=== PATIENT | female | born 1955 | race Caucasian/White ===

== ENCOUNTER 2019-12-04 00:37 | Day surgery (SDC) | payer BC, SELFPAY ==
[2019-12-01 10:59] VITALS: BMI 30.2
[2019-12-04] MEDS: LACTATED RINGERS 1,000 ML 150 ML IV CONT (07:50)
[2019-12-04 07:56] LABS: Glucose Point of Care 101 (65-105)
--- NOTE | 2019-12-04 07:57 | PM.HPGS ---
History of Present Illness History of Present Illness Consent: Risks, benefits, and alternatives have been discussed and questions answered. Patient agrees to proceed with procedure. Chief complaint: Neoplasm Screening Narrative: Lauren Land is a 64 year old W female referred for colonoscopy. Patient states she had a colonoscopy over 10 years ago which was normal. She had a positive colo guard test was referred for colonoscopy. Patient is asymptomatic. No family history of colon cancer. [facility] Past Medical History Medical History (Updated 12/04/19 @ 07:58 by Shyam Wakefield MD) ADHD Depression Diabetes mellitus Hypertension Surgical History Surgical History (Updated 12/04/19 @ 07:59 by Shyam Wakefield MD) H/O bilateral mastectomy H/O varicose vein stripping History of tonsillectomy and adenoidectomy Status post bunionectomy Meds Home Medications and Allergies Home Medications Medication Instructions Recorded Confirmed Type amlodipine-atorvastatin [Caduet] 1 tablet PO DAILY 12/01/19 12/01/19 History atomoxetine 25 mg PO ONCE 12/01/19 12/01/19 History bupropion HCl 300 mg PO QAM 12/01/19 12/01/19 History exemestane 25 mg PO DAILY 12/01/19 12/01/19 History lorazepam 0.5 mg PO DAILY PRN 12/01/19 12/01/19 History losartan 50 mg PO DAILY 12/01/19 12/01/19 History metformin 500 mg PO TID 12/01/19 12/01/19 History omeprazole 40 mg PO DAILY 12/01/19 12/01/19 History pioglitazone [Actos] 30 mg PO DAILY 12/01/19 12/01/19 History Allergies Allergy/AdvReac Type Severity Reaction Status Date / Time No Known Allergies Allergy Verified 12/04/19 07:55 Exam Const: Orientation/consciousness: patient oriented x3 Resp: Auscultation: clear to auscultation bilaterally Cardio: Rate: regular rate Rhythm: regular rhythm Heart sounds: no murmurs GI: GI Palp: Yes Soft to palpation, No Tenderness to palpation present (GI), Yes No hepatosplenomegaly present and No Palpable mass present Auscultation: normal bowel sounds Neuro: General: patient oriented x3 and no focal motor deficits Extrem: General: no pedal edema Assessment and Plan Additional Plan colonoscopy secondary positive colo guard test
[2019-12-04 07:58] VITALS: BP 136/87; PULSE 100; RESP 20; TEMP 36.5; O2SAT 97
--- NOTE | 2019-12-04 08:45 | WPDANESEPPF ---
Anes - Initial Pre Proc Eval Procedure: Operation Date: 12/04/19 09:00 Proposed Procedures p Screening Colonoscopy - Shyam Wakefield MD Date/Time: 12/04/19 08:45 Surgeon: Shyam Wakefield MD Pre Op Diagnosis: Neoplasm Screening Patient Data Age: 64 Gender: F Height: 5 ft 2.5 in Weight: 81.5 kg Last Vital Signs Temp 36.5 C 12/04/19 07:58 Pulse 100 12/04/19 07:58 Resp 20 12/04/19 07:58 BP 136/87 12/04/19 07:58 Pulse Ox 97 12/04/19 07:58 Allergies Allergy/AdvReac Type Severity Reaction Status Date / Time No Known Allergies Allergy Verified 12/04/19 07:55 Home Medications Medication Instructions Recorded Confirmed Type amlodipine-atorvastatin [Caduet] 1 tablet PO DAILY 12/01/19 12/04/19 History atomoxetine 25 mg PO ONCE 12/01/19 12/01/19 History bupropion HCl 300 mg PO QAM 12/01/19 12/01/19 History exemestane 25 mg PO DAILY 12/01/19 12/01/19 History lorazepam 0.5 mg PO DAILY PRN 12/01/19 12/01/19 History losartan 50 mg PO DAILY 12/01/19 12/01/19 History metformin 500 mg PO TID 12/01/19 12/01/19 History omeprazole 40 mg PO DAILY 12/01/19 12/01/19 History pioglitazone [Actos] 30 mg PO DAILY 12/01/19 12/01/19 History Laboratory Tests 12/04/19 07:53 POC Capillary Glucose 101 mg/dl mg/dl (65-105) Patient hx anesthesia problems: none Family hx anesthesia problems: none PMFSH Past Medical History Medical History ADHD Depression Diabetes mellitus Hypertension Surgical History Surgical History H/O bilateral mastectomy H/O varicose vein stripping History of tonsillectomy and adenoidectomy Status post bunionectomy Anes - Eval Final PreProcedure Day of Procedure 12/04/19 08:45 Patient weight: obese Lungs: clear to auscultation Airway: Mallampati scale class II Neurological: alert and oriented Last oral intake: >/= 8 hours ASA classification: III Emergent: no Anesthetic plan: proceed Anesthesia type and monitoring: general GIVS and standard monitoring Informed Consent: The patient's anesthetic plan and its attendant risks and benefits were discussed with the patient/family/POA. Questions were solicited and answers provided to the satisfaction of the patient/family/POA.
[2019-12-04 09:35] VITALS: BP 128/75; PULSE 91; RESP 24; O2SAT 99
[2019-12-04 09:45] VITALS: BP 142/79; PULSE 85; RESP 20; O2SAT 98
[2019-12-04 09:55] VITALS: BP 135/77; PULSE 86; RESP 23; O2SAT 99
== END 2019-12-04 10:04 | disposition home or self-care (01) ==
PROVIDERS: PCP Family Medicine; Visit Provider Internal Medicine Gastroenterology
PROC: 0DJD8ZZ Inspection of Lower Intestinal Tract, Via Natural or Artificial Opening Endoscopic (ICD-10-PCS; CPT 45378; principal; 2019-12-04 09:00)
DX: Z12.11 Encounter for screening for malignant neoplasm of colon (principal); R19.5 Other fecal abnormalities; K63.89 Other specified diseases of intestine; I10 Essential (primary) hypertension; E11.9 Type 2 diabetes mellitus without complications; F90.9 Attention-deficit hyperactivity disorder, unspecified type; F32.9 Major depressive disorder, single episode, unspecified; Z79.84 Long term (current) use of oral hypoglycemic drugs; E66.9 Obesity, unspecified; Z68.32 Body mass index [BMI] 32.0-32.9, adult
CPT/HCPCS: 45378; J2001; J2704; J7120

== ENCOUNTER 2023-07-19 08:49 | Outpatient (CLI) | payer MEDICARE, SELFPAY ==
[2023-07-19 10:30] LABS: Anion Gap 10 mmol/L (8-16); Blood Urea Nitrogen 13 mg/dL (7-17); Calcium 9.4 mg/dL (8.4-10.2); Carbon Dioxide 24 mmol/L (22-30); Chloride 103 mmol/L (98-107); Estimated Glomerular Filt Rate > 60; Glucose 93 mg/dL (65-110); Sodium 137 mmol/L (137-145)
== END 2023-07-19 08:50 | disposition home or self-care (01) ==
LOC: ANHSURGERY 08:56
PROVIDERS: Anesthesiology; PCP Family Medicine; Visit Provider Obstetrics & Gynecology Gynecology
DX: E11.9 Type 2 diabetes mellitus without complications (principal); Z01.818 Encounter for other preprocedural examination
CPT/HCPCS: 36415; 80048

== ENCOUNTER 2023-07-26 01:03 | Day surgery (SDC) | payer MEDICARE, SELFPAY ==
--- NOTE | 2023-07-15 15:55 | PC.NURSE ---
Report to the Outpatient Waiting Room, entrance under the green pavilion located off [facility], at time _0615 on date __07/26/23 . Planned Procedure Time: __814 . Time changes happen often and if your time is changed the preop area will call you the afternoon before. - You and your visitor will be asked to self-screen and do not enter if you have any COVID symptoms. - A mask is optional within the hospital at this time. Patients may have clear liquids (water, carbonated beverages, clear teas, apple juice) until 3 hours prior to surgery with a maximum of 20 ounces. - No food from midnight until time of surgery - Infants may have breast milk until 4 hours before surgery, infant formula 6 hours prior to surgery. - Children will be allowed to drink immediately following surgery. If applicable, please bring a bottle or sippy cup to assist with drinking. Juice, water, soda, and popsicles are readily available. For infants on formula, please bring formula the day of surgery. Pacifiers are allowed. Take the following medications with a SIP of water the morning of surgery: ___BUPROPION DO NOT STOP ANY OF YOUR OTHER PRESCRIPTION MEDICATIONS PRIOR TO SURGERY ?EXCEPT THE FOLLOWING Medications to discontinue per physician __ALL VITAMINS AND SUPPLEMENTS 3 DAYS PRE OP.LAST DOSE 07/22/23 Please no make-up, nail lux[place]ish, hairspray, perfume, deodorant, or body powder the day of surgery. No jewelry (including any body piercings) or valuables the day of surgery, leave them at home. Please take a shower or bath the night before, or the morning of, surgery with an antibacterial soap. Wear comfortable, loose fitting clothing. Children are encouraged to wear pajamas. - Jewelry must be removed prior to entering the operating room. Rings and piercings that are not removed may be cut off. - The hospital will not accept responsibility for valuables. - Please leave all valuables, including medications, at home the day of surgery. If you are going home after surgery, a licensed auto crane driver must drive you home. - NO public transportation without another adult if you receive anesthesia. - We recommend that an adult stay with you for 24 hours following discharge. - We also recommend that you do not drive, make important decision, drink alcoholic beverages, or take any drugs that were not prescribed by your health care provider for at least 24 hours after your discharge time. For Pediatric surgeries, we recommend two adults accompany the child home. Follow any additional instructions given to you from your surgeon. If you or anyone in your household have experienced Covid symptoms in the past week, please notify your surgeon or the nurse liaison at the phone number below for possible testing. Telephone instructions given to __PATIENT and asked if any additional questions and then verbalized understanding. Patient advised to call surgeon office or pre surgery nurse liaison [phone] if any additional questions.
[2023-07-15 16:04] VITALS: BMI 28.1
--- NOTE | 2023-07-26 06:52 | WPDANESEPPF ---
Anes - Initial Pre Proc Eval Procedure: Operation Date: 07/26/23 08:15 Proposed Procedures p Hysteroscopy, Dilation and Curettage - Earlene Ellison MD Date/Time: 07/26/23 06:52 Surgeon: Earlene Ellison MD Pre Op Diagnosis: thick endometrial lining Patient Data Age: 68 Gender: F Height: 1.63 m Weight: 74.4 kg Allergies Allergy/AdvReac Type Severity Reaction Status Date / Time amoxicillin [From Augmentin] Allergy Nausea and Verified 07/26/23 06:16 Vomiting clavulanic acid Allergy Nausea and Verified 07/26/23 06:16 [From Augmentin] Vomiting Home Medications Medication Instructions Recorded Confirmed Type atomoxetine 25 mg capsule 25 mg PO DAILY 12/01/19 07/26/23 History bupropion HCl 300 mg 24 hr tablet, 300 mg PO QAM 12/01/19 07/26/23 History extended release lorazepam 0.5 mg tablet 0.5 mg PO DAILY PRN Anxiety 12/01/19 07/26/23 History metformin 500 mg tablet,extended 500 mg PO TID 12/01/19 07/26/23 History release 24 hr omeprazole 40 mg capsule,delayed 40 mg PO DAILY 12/01/19 07/26/23 History release acetaminophen 650 mg 1,300 mg PO Q12H PRN Pain 07/15/23 07/26/23 History tablet,extended release (Tylenol Arthritis Pain) amitriptyline 25 mg tablet 25 mg PO HS 07/15/23 07/26/23 History amlodipine 10 mg tablet 10 mg PO HS 07/15/23 07/26/23 History ascorbic acid (vitamin C) 1,000 mg 1 g PO DAILY 07/15/23 07/26/23 History tablet atorvastatin 40 mg tablet 20 mg PO HS 07/15/23 07/26/23 History calcium carb-ergocalciferol (vit 1 tablet PO DAILY 07/15/23 07/26/23 History D2) 600 mg calcium-200 unit tablet cetirizine 10 mg capsule (Zyrtec) 10 mg PO HS 07/15/23 07/26/23 History cholecalciferol (vitamin D3) 50 50 mcg PO DAILY 07/15/23 07/26/23 History mcg (2,000 unit) tablet coenzyme Q10 100 mg capsule 100 mg PO DAILY 07/15/23 07/26/23 History (CoQ-10) lisinopril 5 mg tablet 5 mg PO DAILY 07/15/23 07/26/23 History melatonin 5 mg tablet 5 mg PO HS PRN Insomnia 07/15/23 07/26/23 History semaglutide 0.25 mg or 0.5 mg (2 0.25 mg subcut WEEKLY 07/15/23 07/26/23 History mg/3 mL) subcutaneous pen injector (Ozempic) Patient hx anesthesia problems: none Family hx anesthesia problems: none Results Review: All pre-operative results and documents have been reviewed as part of the pre-operative evaluation. [facility] Past Medical History Medical History (Updated 07/26/23 @ 06:52 by Tushar Montilla MD) ADHD Breast cancer Depression Diabetes mellitus Hypertension Surgical History Surgical History (Updated 07/26/23 @ 06:52 by Tushar Montilla MD) H/O bilateral mastectomy H/O sinus surgery H/O varicose vein stripping History of tonsillectomy and adenoidectomy Status post bunionectomy Social History Social History Smoking packs per day: 0.5 Smoking cigarettes per day: 10.0 Years smoked: 20 Smoking pack-years: 10.00 Smoking status: Former smoker Tobacco type: cigarettes Smoking end date: 10/18/99 Living arrangements: with family Spiritual care concerns: No Anes - Eval Final PreProcedure Day of Procedure 07/26/23 06:52 Patient weight: overweight Heart: regular rate and rhythm Lungs: clear to auscultation Airway: Mallampati scale class II Neurological: alert and oriented Last oral intake: >/= 8 hours ASA classification: III Emergent: no Anesthetic plan: proceed Anesthesia type and monitoring: general GIVS and standard monitoring Results Review: All pre-operative results and documents have been reviewed as part of the pre-operative evaluation. Informed Consent: The patient's anesthetic plan and its attendant risks and benefits were discussed with the patient/family/POA. Questions were solicited and answers provided to the satisfaction of the patient/family/POA.
[2023-07-26] MEDS: ACETAMINOPHEN 500 MG TABLET 1000 MG PO (07:02)
[2023-07-26 07:06] LABS: Glucose Point of Care 100 mg/dl (65-105)
[2023-07-26] MEDS: LACTATED RINGERS 1,000 ML 30 ML IV CONT (07:15)
[2023-07-26 07:28] VITALS: BP 132/73; PULSE 107; RESP 16; TEMP 36.8; O2SAT 100; BMI 26.8
--- NOTE | 2023-07-26 07:38 | WPDHPUPDATE1 ---
History and Physical Update Update Date/Time: 07/26/23 07:38 History and Physical has been reviewed, including an updated exam of the patient. There are NO changes in the patient's condition. Risks, benefits, and alternatives have been discussed and questions answered. Patient agrees to proceed with procedure.
--- NOTE | 2023-07-26 07:38 | PM.HPGS ---
History of Present Illness History of Present Illness Consent: Risks, benefits, and alternatives have been discussed and questions answered. Patient agrees to proceed with procedure. Chief complaint: thick endometrial lining Narrative: Lauren Land is a 68 year old female who presented to the office after primary physician ordered a pelvic ultrasound for pelvic pain. The ultrasound showed a 6mm heterogeneous appearing endometrial stripe. The patient denies any vaginal bleeding. It was recommended to undergo D&C hysteroscopy for further evaluation. Risks of infection, bleeding, perforation, and possible pathology were reviewed. Patient voices understanding and agrees to proceed. Review of Systems Review of Systems: not repeated day of surgery; patient states no changes in status PMFSH Past Medical History Medical History (Updated 07/26/23 @ 07:42 by Earlene Ellison MD) ADHD Anxiety Breast cancer Diagnosed 2019 Depression Diabetes mellitus Hypercholesterolemia Hypertension Surgical History Surgical History (Updated 07/26/23 @ 07:41 by Earlene Ellison MD) H/O bilateral mastectomy With reconstructive surgery H/O sinus surgery H/O varicose vein stripping History of tonsillectomy and adenoidectomy Status post bunionectomy Social History Social History Smoking packs per day: 0.5 Smoking cigarettes per day: 10.0 Years smoked: 20 Smoking pack-years: 10.00 Smoking status: Former smoker Tobacco type: cigarettes Smoking end date: 10/18/99 Living arrangements: with family Spiritual care concerns: No Meds Home Medications and Allergies Home Medications Medication Instructions Recorded Confirmed Type atomoxetine 25 mg capsule 25 mg PO DAILY 12/01/19 07/26/23 History bupropion HCl 300 mg 24 hr tablet, 300 mg PO QAM 12/01/19 07/26/23 History extended release lorazepam 0.5 mg tablet 0.5 mg PO DAILY PRN Anxiety 12/01/19 07/26/23 History metformin 500 mg tablet,extended 500 mg PO TID 12/01/19 07/26/23 History release 24 hr omeprazole 40 mg capsule,delayed 40 mg PO DAILY 12/01/19 07/26/23 History release acetaminophen 650 mg 1,300 mg PO Q12H PRN Pain 07/15/23 07/26/23 History tablet,extended release (Tylenol Arthritis Pain) amitriptyline 25 mg tablet 25 mg PO HS 07/15/23 07/26/23 History amlodipine 10 mg tablet 10 mg PO HS 07/15/23 07/26/23 History ascorbic acid (vitamin C) 1,000 mg 1 g PO DAILY 07/15/23 07/26/23 History tablet atorvastatin 40 mg tablet 20 mg PO HS 07/15/23 07/26/23 History calcium carb-ergocalciferol (vit 1 tablet PO DAILY 07/15/23 07/26/23 History D2) 600 mg calcium-200 unit tablet cetirizine 10 mg capsule (Zyrtec) 10 mg PO HS 07/15/23 07/26/23 History cholecalciferol (vitamin D3) 50 50 mcg PO DAILY 07/15/23 07/26/23 History mcg (2,000 unit) tablet coenzyme Q10 100 mg capsule 100 mg PO DAILY 07/15/23 07/26/23 History (CoQ-10) lisinopril 5 mg tablet 5 mg PO DAILY 07/15/23 07/26/23 History melatonin 5 mg tablet 5 mg PO HS PRN Insomnia 07/15/23 07/26/23 History semaglutide 0.25 mg or 0.5 mg (2 0.25 mg subcut WEEKLY 07/15/23 07/26/23 History mg/3 mL) subcutaneous pen injector (Ozempic) Allergies Allergy/AdvReac Type Severity Reaction Status Date / Time amoxicillin [From Augmentin] Allergy Nausea and Verified 07/26/23 06:16 Vomiting clavulanic acid Allergy Nausea and Verified 07/26/23 06:16 [From Augmentin] Vomiting Vital Signs Vital Signs - 24 hr 07/26/23 07:28 Temperature 98.2 F Pulse Rate 107 H Respiratory Rate 16 Blood Pressure 132/73 Pulse Oximetry 100 Oxygen Delivery Room Air Exam Const: General: healthy appearing and alert Orientation/consciousness: patient oriented x3 Resp: Effort & Inspection: normal respiratory effort GI: GI Palp: Yes Soft to palpation, No Tenderness to palpation present (GI) and No Palpable mass
--- NOTE | 2023-07-26 08:51 | W.PM.PROC2 ---
Procedure Note - Detailed Date of Procedure 07/26/23 Pre-op Diagnosis thick endometrial lining Post-op Diagnosis Same Procedure Performed D&C hysteroscopy Surgeon Earlene Ellison MD Anesthesia MAC Findings The cervix is stenotic. The endometrium has a cystic appearance. The remainder of the endometrium appears atrophic. The uterus sounds to 6cm. Description of Procedure The patient is taken to the operating room and placed under anesthesia in the dorsal lithotomy position. She was prepped and draped in the usual sterile fashion. [place] speculum was placed in the vagina and the cervix grasped on the anterior lip with a tenaculum. The external os and internal os are very stenotic. The uterine sound is not pass the external os. Cervix is serially dilated to a 5 [place]gar. The diagnostic hysteroscope was placed and with the above-stated findings the Aveeta resection device is opened and placed. Under direct visualization the cystic areas anteriorly and posteriorly are removed in their entirety. The hysteroscope was then removed and the OO sharp curette is used to curette the endometrium until a good uterine cry is noted in all areas. Minimal material was obtained consistent with the atrophic appearance. The uterus is then sounded to 6cm. All instruments are removed. Sponge, needle, and instrument counts are correct per the OR staff. The patient was awakened from anesthesia and taken to recovery in stable condition. Estimated Blood Loss 5 Drains No Packing No Pathology Yes (Endometrial shavings and curettings) Complications No immediate complications Condition Stable
[2023-07-26 08:56] VITALS: BP 124/82; PULSE 87; RESP 14; O2SAT 99
[2023-07-26 09:03] LABS: Glucose Point of Care 102 mg/dl (65-105)
[2023-07-26 09:25] VITALS: BP 112/63; PULSE 85; RESP 20
[2023-07-26 09:35] VITALS: BP 122/71; PULSE 91; RESP 20
== END 2023-07-26 09:45 | disposition home or self-care (01) ==
PROVIDERS: PCP Family Medicine; Visit Provider Obstetrics & Gynecology Gynecology
PROC: 0U5B8ZZ Destruction of Endometrium, Via Natural or Artificial Opening Endoscopic (ICD-10-PCS; CPT 58563; principal; 2023-07-26 08:15)
DX: N85.8 Other specified noninflammatory disorders of uterus (principal); F90.9 Attention-deficit hyperactivity disorder, unspecified type; F41.9 Anxiety disorder, unspecified; F32.A Depression, unspecified; E11.9 Type 2 diabetes mellitus without complications; E78.00 Pure hypercholesterolemia, unspecified; I10 Essential (primary) hypertension; Z87.891 Personal history of nicotine dependence; Z79.84 Long term (current) use of oral hypoglycemic drugs; Z79.85 Long-term (current) use of injectable non-insulin antidiabetic drugs
CPT/HCPCS: 58558; 82948; 88305; A9270; J1885; J2250; J2405; J2704; J3010; J7120